=== PATIENT | female | born 1965 | race Caucasian/White ===

== ENCOUNTER 2016-11-21 07:55 | Inpatient (IN) | payer OTHER ==
[~2016-11-21 07:55] MED LIST: cefOXitin SODIUM 1 GM in D5W 50 ML IV ONE
[2016-11-21] MEDS ORDERED: LR 1,000 ML IV ONE (08:46)
[2016-11-21] MEDS ORDERED: LIDOCAINE 1% 5 ML SDV ID PRN (08:46)
[2016-11-21 09:18] LABS: % IMMATURE GRANULYOCYTES 0.4 % (0.0-1.1); ABSOLUTE IMMATURE GRANULOCYTES 0.02 10^3/uL (0.00-0.10); ADD DIFF? NO; ADD MORPH? NO; ADD SCAN? NO; ATYPICAL LYMPHOCYTE FLAG 10 (0-99); FRAGMENT RBC FLAG 0 (0-99); HEMATOCRIT 36.7 % (38.0-47.0); HEMOGLOBIN 12.5 g/dL (12.6-16.3); LEFT SHIFT FLG 0 (0-99); LIPEMIA HEMOLYSIS FLAG 90 (0-99); MEAN CELL HEMOGLOBIN 32.1 pg (27.9-34.1); MEAN CELL HEMOGLOBIN CONCENTR. 34.1 g/dL (32.4-36.7); MEAN CELL VOLUME 94.3 fL (81.5-99.8); MEAN PLATELET VOLUME 11.6 fL (8.7-11.7); PLATELET CLUMPS FLAG 0 (0-99); PLATELET COUNT 273 10^3/uL (150-400); RED BLOOD CELL COUNT 3.89 10^6/uL (4.18-5.33); RED CELL DISTRIBUTION WIDTH 12.5 % (11.5-15.2)
[2016-11-21] MEDS ORDERED: BUPIVACAINE 0.5% 30 ML SDV ONE ×2 (10:03→11:13)
[2016-11-21] MEDS ORDERED: NALOXONE HCL 0.4 MG/ML INJ IVP PRN (10:10)
[2016-11-21] MEDS ORDERED: ONDANSETRON DISINTEGRATING 4 MG TAB PO PRN (10:11)
[2016-11-21] MEDS ORDERED: ONDANSETRON 4 MG/2 ML VIAL IVP PRN (10:11)
[2016-11-21] MEDS ORDERED: ACETAMINOPHEN 325 MG TAB PO PRN (10:11)
[2016-11-21] MEDS ORDERED: diphenhydrAMINE 25 MG CAP PO PRN (10:11)
[2016-11-21] MEDS ORDERED: MIDAZOLAM 2 MG/2 ML VIAL ONE (10:31)
[2016-11-21] MEDS ORDERED: ROCURONIUM 50 MG/5 ML VIAL ONE (10:32)
[2016-11-21] MEDS ORDERED: PROPOFOL 200 MG/20 ML VIAL ONE (10:32)
[2016-11-21] MEDS ORDERED: LIDOCAINE 2% 5 ML SDV ONE (10:32)
[2016-11-21] MEDS ORDERED: fentaNYL 100 MCG/2 ML INJ ONE ×3 (10:32→13:01)
[2016-11-21] MEDS ORDERED: DEXAMETHASONE 4 MG/ML VIAL ONE ×2 (10:42)
[2016-11-21] MEDS ORDERED: ONDANSETRON 4 MG/2 ML VIAL ONE (10:44)
[2016-11-21] MEDS ORDERED: LIDOCAINE 2% JELLY 5 ML TUBE ONE (11:29)
[2016-11-21] MEDS ORDERED: fentaNYL 250 MCG/5 ML INJ ONE (12:01)
[2016-11-21] MEDS ORDERED: SUGAMMADEX SODIUM 200 MG/2 ML VIAL IVP ONE (12:24)
[2016-11-21] MEDS ORDERED: KETOROLAC 30 MG/1 ML SDV ONE (12:24)
--- NOTE | 2016-11-21 12:31 | POSTOPPROG ---
Post Op Note Date of Operation: 11/21/16 Surgeon: Magalys Dey Otr Owner Operator: ricardo Anesthesiologist: sally Anesthesia: GET(General Endotracheal) Pre-op Diagnosis: gist Post-op Diagnosis: gist Indication: 51 yo with gist tumor stomach Procedure: lap resection of gist Findings: tumor Inf/Abcess present in the surg proc area at time of surgery?: No EBL: Minimal Specimen(s): wedge stomach
[2016-11-21] MEDS ORDERED: SKIN ADHESIVE (DERMABOND) 1 EACH TP ONE (12:34)
--- NOTE | 2016-11-21 12:56 | GOP ---
[f rep st] OPERATIVE REPORT DATE OF OPERATION: SURGEON: Magalys Dey MD ASSEMBLER MOLDED FRAMES: Yasmine Mohamud, LORRAINE ANESTHESIA: General. ANESTHESIOLOGIST: Dr. 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 PROCEDURE PERFORMED: Laparoscopic wedge resection of GIST tumor/partial gastrectomy. FINDINGS: Tattooed tumor and tumor palpable. SPECIMENS: Stomach with tumor. ESTIMATED BLOOD LOSS: 25 cc INDICATIONS: The patient is a 51-year-old woman who has had abdominal problems. She then had a scope and was found to have a submucosal mass. Biopsy showed GIST. DESCRIPTION OF PROCEDURE: The patient was brought into the operating room, placed supine on the table and general anesthesia was administered. Her abdomen was prepped and draped in the usual fashion with chlorhexidine. I infiltrated all sites with 0.5% Marcaine prior to making an incision. I made an incision by her umbilicus. I elevated it. I inserted the Veress needle. It passed the hanging drop test. Her abdomen insufflated easily to a pressure of 15 mmHg. Under direct vision I placed a 5 mm subxiphoid trocar and a 5 mm trocar in her right upper quadrant. I examined her stomach. There was tattooing on the anterior aspect of the stomach. As I palpated this, the tumor seemed to be submucosal and a bit posterior. I used the Harmonic to ligate a portion of the short gastric vessels and the omentum. I then was able to grasp the nodule more completely. I used the Endo ROCKY 45 blue load and on the first load this fired very easily. A subsequent fire did not. I ultimately had to switch to an Endo-ROCKY 45 green load to come around the mass completely. In total, I used 4 staple loads. The pylorus was not narrowed. The mass was placed in an EndoCatch bag, retrieved and sent to Pathology. An NG tube was placed, and air insufflated in the stomach. I placed the staple line below irrigation and no bubbles were noted as air insufflation was performed. There were 2 areas of bleeding at the staple line which a clip hat finisher was used to obtain hemostasis. The ports were removed under direct vision and the abdomen allowed to desufflate. The fascia at the 10 mm trocar site was closed with 0 Vicryl. Skin closed with 4-0 Monocryl. Dermabond applied. She was awakened in the operating room, extubated and transferred to PACU in stable condition. /[id number]/MODL MTDD
[2016-11-21] MEDS ORDERED: HYDROmorphONE/DILAUDID 1 MG/ML SYR ONE (13:01)
[2016-11-21] MEDS: morphINE PCA 30 MG/30 ML PCA IV PRN (14:56)
[2016-11-21] MEDS ORDERED: CEPACOL LOZENGE PO PRN (17:32)
[2016-11-21] MEDS ORDERED: BENZOCAINE 57 G CAN HURRICAINE MM PRN (17:38)
[2016-11-21] MEDS ORDERED: BENZOCAINE UNIT DOSE SPRAY HURRICAINE MM PRN (17:39)
[2016-11-21] MEDS: PROPRANOLOL HCL 20 MG TAB PO SCH (20:00)
[2016-11-21] MEDS ORDERED: PROPRANOLOL HCL 60 MG PO SCH (21:00)
[2016-11-22] MEDS: morphINE PCA 30 MG/30 ML PCA IV PRN (03:50)
[2016-11-22] MEDS: NS 1,000 ML IV SCH ×2 (03:50→16:01)
[2016-11-22 05:50] LABS: % IMMATURE GRANULYOCYTES 0.5 % (0.0-1.1); ABSOLUTE IMMATURE GRANULOCYTES 0.06 10^3/uL (0.00-0.10); ADD DIFF? NO; ADD MORPH? NO; ADD SCAN? NO; ATYPICAL LYMPHOCYTE FLAG 0 (0-99); FRAGMENT RBC FLAG 0 (0-99); HEMATOCRIT 35.1 % (38.0-47.0); HEMOGLOBIN 11.7 g/dL (12.6-16.3); LEFT SHIFT FLG 0 (0-99); LIPEMIA HEMOLYSIS FLAG 80 (0-99); MEAN CELL HEMOGLOBIN 32.4 pg (27.9-34.1); MEAN CELL HEMOGLOBIN CONCENTR. 33.3 g/dL (32.4-36.7); MEAN CELL VOLUME 97.2 fL (81.5-99.8); PLATELET CLUMPS FLAG 0 (0-99); PLATELET COUNT 269 10^3/uL (150-400); RED BLOOD CELL COUNT 3.61 10^6/uL (4.18-5.33); RED CELL DISTRIBUTION WIDTH 12.6 % (11.5-15.2)
[2016-11-22 06:15] LABS: ANION GAP 10 mEq/L (8-16); CALCIUM 8.8 mg/dL (8.5-10.4); CARBON DIOXIDE 23 mEq/l (22-31); CHLORIDE 109 mEq/L (97-110); CREATININE 0.7 mg/dL (0.6-1.0); GLOMERULAR FILTRATION RATE > 60; GLUCOSE 77 mg/dL (70-100); POTASSIUM 4.5 mEq/L (3.5-5.2); SODIUM 142 mEq/L (134-144)
[2016-11-22] MEDS ORDERED: HYDROCORTISONE 10 MG TAB PO SCH (09:00)
[2016-11-22] MEDS: PANTOPRAZOLE SODIUM 40 MG in NS 100 ML IV SCH (09:20)
[2016-11-22] MEDS: ENOXAPARIN 40 MG/0.4 ML SYR SC SCH (09:20)
[2016-11-22] MEDS: PROPRANOLOL HCL 20 MG TAB PO SCH ×3 (12:26→20:43)
[2016-11-22] MEDS: HYDROCORTISONE 10 MG TAB PO SCH (12:26)
[2016-11-22] MEDS: [UNRECOGNIZED DRUG - OTHER] PO SCH ×2 (12:27→13:21)
--- NOTE | 2016-11-22 23:53 | SOAPPROG ---
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 Still with high NG output. Will reassess tomorrow - No boucher Heme/ID - No active issues Proph - Lovenox Dispo - continue hospital management S: Pain controlled. NG irritating. Difficult to swallow propranolol O: Sitting in bed. Dark fluid in NG CTAB decreased at bases Regular rate BS present. Soft. Appropriately tender. Incisions cdi Plan: 11/22/16 23:51 Objective: Vital Signs Temp Pulse Resp BP Pulse Ox 37.4 C 65 16 102/52 L 95 11/22/16 22:00 11/22/16 22:00 11/22/16 22:00 11/22/16 22:00 11/22/16 22:00 Laboratory Results 11/22/16 05:20 11/22/16 05:20 11/21/16 11/22/16 11/23/16 05:59 05:59 05:59 Intake Total 2900 480 Output Total 430 2500 Balance 2469 ICD10 Worksheet Patient Problems: Problems Problem Status Onset Gastrointestinal stromal tumor (GIST) Acute - ICD10 Problem Qualifiers (1) Gastrointestinal stromal tumor (GIST)
[2016-11-23] MEDS: morphINE PCA 30 MG/30 ML PCA IV PRN ×2 (02:28→16:07)
[2016-11-23] MEDS: NS 1,000 ML IV SCH ×2 (04:38→17:36)
[2016-11-23] MEDS ORDERED: LORazepam 2 MG/ML INJ IVP ONE (09:30)
[2016-11-23] MEDS: HYDROCORTISONE 10 MG TAB PO SCH (10:03)
[2016-11-23] MEDS: [UNRECOGNIZED DRUG - OTHER] PO SCH (10:04)
[2016-11-23] MEDS ORDERED: LORazepam 2 MG/ML INJ IVP PRN (10:19)
--- NOTE | 2016-11-23 10:34 | SOAPPROG ---
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 Back pain/spasm started Ativan Resp - IS Cards - Monitor for hemodynamic instability. Propranol hold if SBP <110 or Pulse <50 GI - Passing flatus. Clamped NG. X ray at 2 pm. If stomach not distended, will remove NG - No boucher Heme/ID - No active issues. Will recheck CBC Proph - Lovenox Dispo - continue hospital management S:Back pain. Sleepy after ativan O: lying in bed. thin yellow fluid in NG CTAB decreased at bases Regular rate BS present. Soft. Appropriately tender. Incisions cdi Plan: 11/22/16 23:51 11/23/16 10:33 Objective: Vital Signs Temp Pulse Resp BP Pulse Ox 37.6 C 78 16 102/54 L 94 11/23/16 08:00 11/23/16 10:00 11/23/16 10:00 11/23/16 08:00 11/23/16 10:00 Laboratory Results 11/22/16 05:20 11/22/16 05:20 11/22/16 11/23/16 11/24/16 05:59 05:59 05:59 Intake Total 2900 480 711 Output Total 430 3200 Balance 2470 -6550 711 ICD10 Worksheet Patient Problems: Problems Problem Status Onset Gastrointestinal stromal tumor (GIST) Acute - ICD10 Problem Qualifiers (1) Gastrointestinal stromal tumor (GIST)
[2016-11-23 10:38] LABS: % IMMATURE GRANULYOCYTES 0.4 % (0.0-1.1); ABSOLUTE IMMATURE GRANULOCYTES 0.05 10^3/uL (0.00-0.10); ADD DIFF? NO; ADD MORPH? NO; ADD SCAN? NO; ATYPICAL LYMPHOCYTE FLAG 0 (0-99); FRAGMENT RBC FLAG 0 (0-99); HEMATOCRIT 34.7 % (38.0-47.0); HEMOGLOBIN 11.6 g/dL (12.6-16.3); LEFT SHIFT FLG 0 (0-99); LIPEMIA HEMOLYSIS FLAG 80 (0-99); MEAN CELL HEMOGLOBIN 32.7 pg (27.9-34.1); MEAN CELL HEMOGLOBIN CONCENTR. 33.4 g/dL (32.4-36.7); MEAN CELL VOLUME 97.7 fL (81.5-99.8); MEAN PLATELET VOLUME 11.6 fL (8.7-11.7); PLATELET CLUMPS FLAG 0 (0-99); PLATELET COUNT 245 10^3/uL (150-400); RED BLOOD CELL COUNT 3.55 10^6/uL (4.18-5.33); RED CELL DISTRIBUTION WIDTH 12.3 % (11.5-15.2)
[2016-11-23] MEDS: ENOXAPARIN 40 MG/0.4 ML SYR SC SCH (10:47)
[2016-11-23] MEDS: PANTOPRAZOLE SODIUM 40 MG in NS 100 ML IV SCH (10:48)
[2016-11-23] MEDS: PROPRANOLOL HCL 20 MG TAB PO SCH ×2 (10:52→20:42)
[2016-11-23] MEDS: KETOROLAC 15 MG/1 ML SDV IVP PRN (17:37)
[2016-11-24] MEDS: KETOROLAC 15 MG/1 ML SDV IVP PRN ×2 (00:29→09:35)
[2016-11-24 05:18] LABS: % IMMATURE GRANULYOCYTES 0.4 % (0.0-1.1); ABSOLUTE IMMATURE GRANULOCYTES 0.03 10^3/uL (0.00-0.10); ADD DIFF? NO; ADD MORPH? NO; ADD SCAN? NO; ATYPICAL LYMPHOCYTE FLAG 0 (0-99); FRAGMENT RBC FLAG 0 (0-99); HEMATOCRIT 33.7 % (38.0-47.0); HEMOGLOBIN 11.5 g/dL (12.6-16.3); LEFT SHIFT FLG 0 (0-99); LIPEMIA HEMOLYSIS FLAG 90 (0-99); MEAN CELL HEMOGLOBIN 32.2 pg (27.9-34.1); MEAN CELL HEMOGLOBIN CONCENTR. 34.1 g/dL (32.4-36.7); MEAN CELL VOLUME 94.4 fL (81.5-99.8); MEAN PLATELET VOLUME 11.3 fL (8.7-11.7); PLATELET CLUMPS FLAG 0 (0-99); PLATELET COUNT 219 10^3/uL (150-400); RED BLOOD CELL COUNT 3.57 10^6/uL (4.18-5.33)
[2016-11-24 05:42] LABS: ANION GAP 12 mEq/L (8-16); CALCIUM 8.6 mg/dL (8.5-10.4); CARBON DIOXIDE 18 mEq/l (22-31); CHLORIDE 108 mEq/L (97-110); CREATININE 0.6 mg/dL (0.6-1.0); GLOMERULAR FILTRATION RATE > 60; GLUCOSE 59 mg/dL (70-100); POTASSIUM 4.1 mEq/L (3.5-5.2); SODIUM 138 mEq/L (134-144)
[2016-11-24] MEDS ORDERED: D5W 1/2 NS W/ 20 KCl/L 1,000 ML IV SCH (06:30)
[2016-11-24] MEDS ORDERED: [UNRECOGNIZED DRUG - OTHER] PO SCH ×2 (09:00→10:00)
[2016-11-24] MEDS: ENOXAPARIN 40 MG/0.4 ML SYR SC SCH (09:13)
[2016-11-24] MEDS: HYDROCORTISONE 10 MG TAB PO SCH (09:16)
[2016-11-24] MEDS: PANTOPRAZOLE SODIUM 40 MG in NS 100 ML IV SCH (09:35)
[2016-11-24] MEDS: [UNRECOGNIZED DRUG - OTHER] PO SCH ×2 (10:01→15:44)
[2016-11-24] MEDS ORDERED: CYCLOBENZAPRINE 10 MG TAB PO ONE (10:32)
[2016-11-24] MEDS ORDERED: BISACODYL 10 MG SUPP PR PRN (10:39)
[2016-11-24] MEDS ORDERED: POLYETHYLENE GLYCOL 3350 17 GM PKT PO PRN (10:39)
[2016-11-24] MEDS ORDERED: LACTULOSE 20 GM/30 ML UDCUP PO PRN (10:39)
[2016-11-24] MEDS ORDERED: MAGNESIUM HYDROXIDE 30 ML UDCUP PO PRN (10:39)
--- NOTE | 2016-11-24 11:01 | SOAPPROG ---
SOAP Progress Note Assessment/Plan: Assessment: 51yo F who is POD #3 s/p wedge resection of GIST. Final path pending Neuro - morphine BUSGIRL, transition to PO. Back pain/spasm, sensitive to ativan. Try Flexeril Resp - IS Cards - Monitor for hemodynamic instability. Propranol hold if SBP <110 or Pulse <50 GI - Passing flatus. No nausea since NG removed overnight. start bowel protocol FEN - advance to clear liquid diet - No boucher Heme/ID - No active issues. CBC stable Proph - Lovenox Dispo - continue hospital management. Seen with Dr. Dey S: back spasms persistent, passed out after ativan. no abdominal pain. passing flatus. no BM O: lying in bed, uncomfortable, at bedside CTAB decreased at bases Regular rate BS present. Soft. Minimally tender. Incisions cdi 11/24/16 13:40 Objective: Vital Signs Temp Pulse Resp BP Pulse Ox 37.1 C 80 12 124/70 H 93 11/24/16 09:55 11/24/16 09:55 11/24/16 09:55 11/24/16 09:55 11/24/16 09:55 Laboratory Results 11/24/16 04:54 11/24/16 04:54 11/23/16 11/24/16 11/25/16 05:59 05:59 05:59 Intake Total 480 1611 Output Total 9510 1700 Balance -2720 -89 ICD10 Worksheet Patient Problems: Problems Problem Status Onset Gastrointestinal stromal tumor (GIST) Acute
[2016-11-24] MEDS: HYDROCODONE/APAP 5/325 TAB PO PRN ×2 (13:08→18:21)
[2016-11-24] MEDS: PROPRANOLOL HCL 20 MG TAB PO SCH ×2 (15:43)
[2016-11-24] MEDS: SENNOSIDES/DOCUSATE SODIUM TAB PO SCH (20:06)
[2016-11-24] MEDS: CYCLOBENZAPRINE 10 MG TAB PO PRN (20:07)
[2016-11-25] MEDS: HYDROCODONE/APAP 5/325 TAB PO PRN ×3 (00:36→21:32)
[2016-11-25] MEDS: CYCLOBENZAPRINE 10 MG TAB PO PRN (06:30)
[2016-11-25] MEDS: [UNRECOGNIZED DRUG - OTHER] PO SCH ×2 (09:07→15:50)
[2016-11-25] MEDS: PROPRANOLOL HCL 20 MG TAB PO SCH ×2 (09:08→21:31)
[2016-11-25] MEDS: ENOXAPARIN 40 MG/0.4 ML SYR SC SCH (09:08)
[2016-11-25] MEDS: SENNOSIDES/DOCUSATE SODIUM TAB PO SCH ×2 (09:09→21:31)
[2016-11-25] MEDS: PANTOPRAZOLE SODIUM 40 MG TAB PO SCH (09:10)
[2016-11-25] MEDS: HYDROCORTISONE 10 MG TAB PO SCH (09:11)
--- NOTE | 2016-11-25 09:32 | SOAPPROG ---
SOAP Progress Note Assessment/Plan: Assessment: 51yo F who is POD #4 s/p wedge resection of GIST. Final path pending Neuro - PO norco and Flexeril Resp - IS Cards - Monitor for hemodynamic instability. Propranol hold if SBP <110 or Pulse <50 GI - Passing flatus. bowel protocol. FEN - tolerating clears, advance to regular - voiding spontaneously Heme/ID - No active issues Proph - Lovenox Dispo - home tomorrow am. Seen with Dr. Tiburcio Moore - new rash R inner arm, not itchy - try topical hydrocortisone S: back spasms persistent, slept better on pull-out couch. no pain when sitting upright. abdominal pain with certain movements O: sitting upright eating breakfast, NAD CTAB decreased at bases Regular rate BS present. Soft. Nontender. Incisions cdi Objective: Vital Signs Temp Pulse Resp BP Pulse Ox 37.4 C 72 14 116/72 95 11/25/16 07:49 11/25/16 09:08 11/25/16 07:49 11/25/16 09:08 11/25/16 07:49 Laboratory Results 11/24/16 04:54 11/24/16 04:54 11/24/16 11/25/16 11/26/16 05:59 05:59 05:59 Intake Total 1611 850 Output Total 1700 400 Balance -89 450 ICD10 Worksheet Patient Problems: Problems Problem Status Onset Gastrointestinal stromal tumor (GIST) Acute
[2016-11-25] MEDS: HYDROCORTISONE 1% CREAM TP SCH ×2 (11:07→21:32)
[2016-11-25] MEDS ORDERED: RIZATRIPTAN BENZOATE 10 MG PO PRN (11:26)
[2016-11-25] MEDS ORDERED: Rizatriptan Benzoate [Rizatriptan] 10 MG PO PRN (11:27)
[2016-11-26 08:19] VITALS: BP 91/66; PULSE 79; RESP 14; TEMP 98.8; O2SAT 96
[2016-11-26] MEDS: SENNOSIDES/DOCUSATE SODIUM TAB PO SCH (08:32)
[2016-11-26] MEDS: ENOXAPARIN 40 MG/0.4 ML SYR SC SCH (08:33)
[2016-11-26] MEDS: HYDROCORTISONE 10 MG TAB PO SCH (08:33)
[2016-11-26] MEDS: PANTOPRAZOLE SODIUM 40 MG TAB PO SCH (08:33)
[2016-11-26] MEDS: PROPRANOLOL HCL 20 MG TAB PO SCH (08:33)
[2016-11-26] MEDS: HYDROCORTISONE 1% CREAM TP SCH (08:34)
[2016-11-26] MEDS: [UNRECOGNIZED DRUG - OTHER] PO SCH (08:37)
--- NOTE | 2016-11-26 10:44 | SOAPPROG ---
SOAP Progress Note Assessment/Plan: Assessment: 51yo F who is POD #5 s/p wedge resection of gastric tumor. Final path pending, prelim neuroendocrine Neuro - PO norco and Flexeril Resp - IS Cards - Monitor for hemodynamic instability. Propranol hold if SBP <110 or Pulse <50 GI - Passing flatus. bowel protocol. FEN - tolerating regular diet - voiding spontaneously Heme/ID - No active issues Proph - Lovenox Dispo - home today. f/u Dr. castro. F/u Dr. Dey 2 weeks S: had a bowel movement this morning. back spasms persistent. eating well, no new issues O: sitting upright in chair, NAD CTAB decreased at bases Regular rate BS present. Soft. Nontender. Incisions cdi maculopapular rash right inner bicep and inframammary Objective: Vital Signs Temp Pulse Resp BP Pulse Ox 37.1 C 79 14 91/66 L 96 11/26/16 08:00 11/26/16 08:00 11/26/16 08:00 11/26/16 08:00 11/26/16 08:00 Laboratory Results 11/24/16 04:54 11/24/16 04:54 11/25/16 11/26/16 11/27/16 05:59 05:59 05:59 Intake Total 850 1000 Output Total 400 Balance 450 1000 ICD10 Worksheet Patient Problems: Problems Problem Status Onset Gastrointestinal stromal tumor (GIST) Acute
--- NOTE | 2016-11-27 20:21 | GDS ---
[f rep st] DISCHARGE SUMMARY ADMITTING DIAGNOSIS: Submucosal gastric mass. SECONDARY DIAGNOSES: 1. Anxiety. 2. Migraine headache. 3. Mitral valve prolapse. 4. Neck pain. 5. Alopecia. 6. Transient ischemic attack. REASON FOR ADMISSION: The patient is a 51-year-old woman who was recently found to have a submucosa l mass in the gastric antrum. Preop workup showed the mass suspected gist tumor. She presents this time for surgical resection, pain control, observation. HOSPITAL COURSE: She was taken to the operating room on 11/21/[address] Magalys Dey for a laparos copic resection of gastric mass. Her NG tube was removed on postoperative day #2, and her diet was advanced to regular by postoperative day 4. On postoperative day 5, her pain was controlled with or al pain medications. She was tolerating a regular diet, ambulating independently. Through her hosp ital stay she has suffered from low back pain, which was improved by sleeping and sitting upright. She was stable for discharge on postop day #5. CONDITION: She is being discharged home in stable condition. Pain controlled with oral pain medica tion, tolerating regular diet and ambulating independently. DISCHARGE MEDICATIONS: She was prescribed [place] and Flexeril. She was instructed to resume home me dications. Please see EMR for further detail. DISCHARGE INSTRUCTIONS AND FOLLOWUP: She will follow up with LORRAINE Estrella in 2 weeks. She ma y shower. She may follow a regular diet. She will avoid heavy lifting, pushing, or pulling x2 week s. She understands to call our office with any worsening symptoms questions or concerns. /[id number]/MODL
== END 2016-11-26 11:22 | disposition home or self-care (01) | DRG 544 ==
LOC: F3E 07:55
PROVIDERS: ADMIT Surgery; ATTEND Surgery
PROC: 0DB64ZZ Excision of Stomach, Percutaneous Endoscopic Approach (ICD-10-PCS; principal; 2016-11-21 09:45)
DX: C49.A2 Gastrointestinal stromal tumor of stomach (principal); F41.9 Anxiety disorder, unspecified; G43.909 Migraine, unspecified, not intractable, without status migrainosus; I34.1 Nonrheumatic mitral (valve) prolapse; M54.2 Cervicalgia; L65.9 Nonscarring hair loss, unspecified; Z80.9 Family history of malignant neoplasm, unspecified; Z83.3 Family history of diabetes mellitus; Z82.49 Family history of ischemic heart disease and other diseases of the circulatory system
CPT/HCPCS: J0697; J1100; J1170; J1650; J1885; J2060; J2250; J2270; J2405; J2704; J3010

== ENCOUNTER → 2017-07-22 | Outpatient (CLI) | payer OTHER | LOC: FIMAGING 07:32 | PROVIDERS: ATTEND Family Medicine | DX: E04.2 Nontoxic multinodular goiter (principal); E06.3 Autoimmune thyroiditis ==

== ENCOUNTER → 2017-07-24 | Outpatient (CLI) | payer OTHER | LOC: FIMAGING 15:27 | PROVIDERS: ATTEND Family Medicine | DX: Z12.31 Encounter for screening mammogram for malignant neoplasm of breast (principal) | CPT/HCPCS: G0202 ==

== ENCOUNTER → 2017-08-18 | Outpatient (CLI) | payer OTHER | LOC: FIMAGING 09:05 | PROVIDERS: ATTEND Family Medicine | DX: R92.8 Other abnormal and inconclusive findings on diagnostic imaging of breast (principal) | CPT/HCPCS: G0206 ==

== ENCOUNTER 2017-10-02 19:48 | Emergency (ER) | payer OTHER ==
--- NOTE | 2017-10-02 21:14 | EDPHY ---
H & P Time Seen by Provider: 10/02/17 20:56 HPI/ROS: CHIEF COMPLAINT: Cough HISTORY OF PRESENT ILLNESS: 52-year-old female presents to the emergency department by private vehicle complaining of worsening cough. The patient states that she was recently on a cruise ship and return today. Over last 5 days she has had the nonproductive cough. She states that this has kept her up for several nights. She is concerned because years ago she had a bad "lung infection "and was hospitalized for 11 days. She had pneumonia in the past as well. She is very prone to bronchitis. No history of asthma. She has had subjective fevers and chills. She has diffuse myalgias. Does not receive flu shots because of allergies to eggs. She states that her sides are hurting from coughing. Denies any other abdominal pain. No vomiting. No post tussive vomiting. REVIEW OF SYSTEMS: Constitutional: Subjective fevers, chills Eyes: No double or blurry vision. ENT: No sore throat. Respiratory: Cough as above. no shortness of breath. Cardiac: No chest pain. Gastrointestinal: No abdominal pain, vomiting or diarrhea. Genitourinary: No dysuria. Musculoskeletal: Neck and back pain Skin: No rashes. Neurological: No headache. Past Medical/Surgical History: Migraine headaches, mitral valve prolapse, hysterectomy Social History: and lives in [place] Smoking Status: Never smoked Physical Exam: General Appearance: Alert, no distress.37.3, 96% on room air Eyes: Pupils equal and round. Extraocular motions are all intact. ENT: Mouth: Mucous membranes moist. Respiratory: No wheezing, rhonchi, or rales, lungs are clear to auscultation. Actively try coughing. Cardiovascular: Regular rate and rhythm. Gastrointestinal: Abdomen is soft and nontender, no masses, no rebound or guarding, bowel sounds normal. Neurological: Alert and oriented x 3, cranial nerves II through XII grossly intact Skin: Warm and dry, no rashes. Musculoskeletal: Nontender to palpate along the cervical, thoracic or lumbar spine. Neck is supple. Extremities: Full range of motion and no peripheral edema. Psychiatric: Patient is oriented X 3, there is no agitation. Constitutional: Initial Vital Signs Temperature (C) 37.3 C 10/02/17 19:51 Heart Rate 84 10/02/17 19:51 Respiratory Rate 18 01/26/18 19:51 Blood Pressure 147/78 H 10/02/17 19:51 O2 Sat (%) 96 10/02/17 19:51 O2 Delivery Mode Room Air Allergies/Adverse Reactions: iodine Allergy (Verified 10/02/17 19:53) Iodine and Iodide Containing Produc Allergy (Verified 10/02/17 19:53) Loss of consciousness EGGS Allergy (Uncoded 10/02/17 19:53) Home Medications: Medication Instructions Recorded Propranolol HCl 60 mg PO BID 09/30/14 Esomeprazole Mag Trihydrate 40 mg PO DAILY 10/01/14 [Nexium] Herbals/Supplements -Info Only 1 ea PO DAILY 10/01/14 C/E/Zn/Cu/OM3/DHA/EPA/LUT/ZEAX 1 each PO DAILY 11/18/16 [Preservision Areds 2 Softgel] Hydrocortisone [Cortef 10 mg (*)] 10 mg PO DAILY 11/18/16 T-3 45mcg 22.5 mcg PO DAILY 11/18/16 Rizatriptan Benzoate [Rizatriptan] 10 mg PO Q2 PRN MDD 30MG 11/25/16 Albuterol [Proventil Inhaler HFA 1 - 2 puffs IH Q4PRN PRN #1 mdi 10/02/17 (*)] Azithromycin [Zithromax tab 250 mg] 250 mg PO DAILY #4 tab 10/02/17 Medical Decision Making - Diagnostics Imaging Results: Imaging Impressions Chest X-Ray 10/02/17 21:10 Impression: Minimal airways disease. No pneumonia or effusion. ED Course/Re-evaluation: 52-year-old female presents to the emergency department with ongoing dry cough. Patient has a history of frequent bronchitis and was concerned about possible pneumonia. She requested chest x-ray. Chest x-ray reveals no obvious infiltrate or consolidation. I did to the patient that clinically she likely has influenza. The patient however is outside of the window of testing or treatment. Patient does not have a history of asthma. Patient will be treated with Zithromax, albuterol inhaler for possible bronchitis. She was also encouraged to have close follow-up with primary care provider. Differential Diagnosis: Including but not limited to bronchitis, pneumonia, influenza, viral upper respiratory infection Departure - Departure Disposition: Home, Routine, Self-Care Clinical Impression: Acute bronchitis Qualifiers: Bronchitis organism: unspecified organism Qualified Code(s): J20.9 - Acute bronchitis, unspecified Condition: Good Instructions: Acute Bronchitis (ED) Additional Instructions: Albuterol inhaler 2 puffs every 4 hours for one week and then as needed. Zithromax as directed for 5 days. Ialh-otv-htcvkow Delsym, dextromethorphan, to help suppress your cough at night. Referrals: Zakiya Canales MD [Primary Care Provider] - As per Instructions Prescriptions: Albuterol [Proventil Inhaler HFA (*)] 1 - 2 puffs IH Q4PRN PRN #1 mdi PRN Reason: p.r.n. dyspnea Azithromycin [Zithromax tab 250 mg] 250 mg PO DAILY #4 tab
[2017-10-02] MEDS ORDERED: AZITHROMYCIN 250 MG TAB PO ONE (21:36)
[2017-10-02 22:12] VITALS: BP 91/58; PULSE 78; RESP 22; TEMP 98.8; O2SAT 93
== END 2017-10-02 22:11 | disposition home or self-care (01) ==
DX: J20.9 Acute bronchitis, unspecified (principal)

== ENCOUNTER → 2017-11-06 | Outpatient (CLI) | payer OTHER | LOC: FIMAGING 11:26 | PROVIDERS: ATTEND Family Medicine | DX: M50.322 Other cervical disc degeneration at C5-C6 level (principal); M99.71 Connective tissue and disc stenosis of intervertebral foramina of cervical region ==

== ENCOUNTER 2017-11-09 15:04 | Emergency (ER) | payer OTHER ==
[2017-11-09 15:10] VITALS: O2SAT 98
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
[2017-11-09] MEDS ORDERED: oxyCODONE IR 5 MG TAB PO ONE (16:20)
[2017-11-09 17:51] VITALS: BP 135/76; PULSE 81; RESP 18; TEMP 98.6
== END 2017-11-09 18:23 | disposition home or self-care (01) ==
DX: S16.1XXA Strain of muscle, fascia and tendon at neck level, initial encounter (principal); S00.83XA Contusion of other part of head, initial encounter; Z79.82 Long term (current) use of aspirin; V00.328A Other snow-ski accident, initial encounter; Y99.8 Other external cause status; Y93.23 Activity, snow (alpine) (downhill) skiing, snowboarding, sledding, tobogganing and snow tubing

== ENCOUNTER → 2018-08-11 | Outpatient (CLI) | payer OTHER | LOC: FIMAGING 15:43 | PROVIDERS: ATTEND Family Medicine | DX: Z12.31 Encounter for screening mammogram for malignant neoplasm of breast (principal) ==

== ENCOUNTER 2018-12-14 08:37 | Emergency (ER) | payer OTHER ==
--- NOTE | 2018-12-14 09:11 | EDPHY ---
General Time Seen by Provider: 12/14/18 08:59 Narrative: CLINICAL IMPRESSION: Bronchitis, possible early aspiration pneumonia versus pneumonitis ASSESSMENT/PLAN: 53-year-old female presents to the emergency department with complaints of cough and very mild hemoptysis in the setting aspirating stomach contents related to GERD in the middle the night. Patient reports she "over 8" and dinner, complained of acid reflux all night, and at 1 point aspirated a "mouthful" of stomach contents. Patient reported coughing all night and noting red streaks in her mucus. No reported fever, chills, nausea vomiting. She has no chest pain or shortness of breath. She does have an underlying history of asthma, controlled with once daily Advair. On arrival, patient was noted to be coughing but not hypoxic, tachycardic, tachypneic, or in respiratory distress. Lungs are clear. She does have a leukocytosis of 15 and chest x-ray with possible early right middle lobe infiltrate. This was reviewed with Dr. Oliveira. Final radiology read pending at this time. Given patient's reported history, she will be treated with antibiotics, Augmentin initiated in the ED, prescription given.. She has a severe iodine allergy and is refusing any CT scan containing iodine. She has no pleuritic discomfort, asymmetric leg swelling or history of PE. Encouraged primary care follow-up in 24-48 hours. Warning signs return to ED sooner outlined and discharge and person. DIFFERENTIAL DX: Differential includes but not limited to aspiration pneumonia, bronchitis, laryngitis, LPR, GERD, pleural effusion ED PROCEDURES: See lab and/or imaging results below ED COURSE: 9:00 a.m.: Patient seen and assessed by myself. Vital signs stable, no hypoxia or respiratory distress. Dry cough noted. Plan for labs and chest x- ray. Patient denying GERD symptoms at this time. 10:00 a.m.: Preliminary view of chest x-ray concerning for possible right middle lobe pneumonia. Reviewed with Dr. Oliveira. Final radiology read pending. Patient does have a white count of 15. Given this and persistent cough with reported aspiration will plan to treat with antibiotics. Patient refusing iodine and CT scan due to significant allergy causing her to "stopped breathing". Chest x-ray reviewed with the patient. She is in agreement to taking antibiotics. Vitals remained stable, no hypoxia or tachycardia. CHIEF COMPLAINT: Cough with blood streaks HPI: Very pleasant 53-year-old female presents to the emergency department stating she had bad acid reflux in the middle the night, noted stomach contents refluxing into the mouth and 1 point accidentally aspirated some of this into her lungs. She notes that she has been coughing most of the night in effort to clear her lungs. She has noticed some light blood streaks in her mucus. No significant amount of blood. No vomiting. No abdominal pain, chest pain or shortness of breath. She has a history of asthma treated with Advair. She does not take albuterol as needed. No reported fever or chills. She does report a significant history of a large pleural effusion following surgery 6 years ago requiring thoracotomy on the right lung. She has not had problems since that time. PAST MEDICAL HISTORY: Hypothyroidism, mitral valve prolapse, TIA, migraines See nurse/triage notes for additional history if applicable Pertinent Past Surgical History: Hysterectomy Family History: None reported Social History: , otherwise healthy, severe allergy to iodine REVIEW OF SYSTEMS: All other systems negative Constitutional: No fever, no chills, appetite change. Eyes: No discharge, vision change ENT: Positive for sore throat, congestion, ear pain. Cardiovascular: No chest pain, no palpitations. Respiratory: Positive for cough, no shortness of breath. Gastrointestinal: No abdominal pain, no vomiting, diarrhea. PHYSICAL EXAM: General Appearance: Alert, oriented, appropriate, cooperative, dry cough, NAD, well hydrated, non-toxic appearing, VSS, no hypoxia. HEENT: TMs are clear bilaterally no perforation or FB, no injection, no evidence of serous or mucopurulent otitis. Oropharynx clear is no erythema or exudates, no tonsillar hypertrophy or asymmetry. Dentition without abnormality. Respiratory: There are no retractions, lungs are clear to auscultation. Cardiac: Regular rate and rhythm, no murmurs or gallops. Gastrointestinal: Abdomen is soft, nontender, bowel sounds normal, no masses/ hernia, no rigidity, guarding or focal peritoneal findings. Neurological: [ Alert and oriented x 3, CN 2-12 grossly intact Skin: Warm, dry, no rashes, no nodules on palpation. MEDICAL DECISION MAKING: Patient was seen independently. Secondary supervising physician at time of evaluation was Dr. Oliveira . Diagnosis: Bronchitis with possible early aspiration pneumonia versus pneumonitis . New, requires workup Summary: See Assessment and Plan for summary of ED visit Clinical lab tests: ordered / reviewed. Independent visualization of images, tracing, or specimens: Yes. Decision to obtain medical records or history from someone other than the patient: No Review / Summarize previous medical records: Reviewed past chest x-rays Discussed patient with another provider: Dr. Oliveira Patient Progress: Stable for discharge. - History Smoking Status: Never smoked - Objective Vital Signs: Initial Vital Signs Temperature (C) 37.6 C 12/14/18 08:42 Heart Rate 79 12/14/18 08:42 Respiratory Rate 16 12/14/18 08:42 Blood Pressure 104/85 H 12/14/18 08:42 O2 Sat (%) 98 12/14/18 08:42 O2 Delivery Mode Room Air Allergies/Adverse Reactions: iodine Allergy (Verified 12/14/18 08:40) Iodine and Iodide Containing Produc Allergy (Verified 12/14/18 08:40) Loss of consciousness EGGS Allergy (Uncoded 12/14/18 08:40) Home Medications: Medication Instructions Recorded Propranolol HCl 60 mg PO BID 09/30/14 Advair 100/50 (*) 12/14/18 Amoxicillin/Clavulanate Pot 875 mg PO BID #20 tab 12/14/18 [Augmentin 875 mg tab] Levothyroxine 12/14/18 Laboratory Results: Laboratory Results 12/14/18 09:19 12/14/18 09:19 12/14/18 12/14/18 09:19 09:19 WBC 15.11 10^3/uL H 10^3/uL (3.80-9.50) RBC 4.26 10^6/uL 10^6/uL (4.18-5.33) Hgb 13.6 g/dL g/dL (12.6-16.3) Hct 40.1 % % (38.0-47.0) MCV 94.1 fL fL (81.5-99.8) MCH 31.9 pg pg (27.9-34.1) MCHC 33.9 g/dL g/dL (32.4-36.7) RDW 12.7 % % (11.5-15.2) Plt Count 299 10^3/uL 10^3/uL (150-400) MPV 11.2 fL fL (8.7-11.7) Neut % (Auto) 78.2 % H % (39.3-74.2) Lymph % (Auto) 13.0 % L % (15.0-45.0) [place] % (Auto) 7.3 % % (4.5-13.0) Eos % (Auto) 0.7 % % (0.6-7.6) Baso % (Auto) 0.4 % % (0.3-1.7) Nucleat RBC Rel Count 0.0 % % (0.0-0.2) Absolute Neuts (auto) 11.81 10^3/uL H 10^3/uL (1.70-6.50) Absolute Lymphs (auto) 1.97 10^3/uL 10^3/uL (1.00-3.00) Absolute Monos (auto) 1.10 10^3/uL H 10^3/uL (0.30-0.80) Absolute Eos (auto) 0.11 10^3/uL 10^3/uL (0.03-0.40) Absolute Basos (auto) 0.06 10^3/uL 10^3/uL (0.02-0.10) Absolute Nucleated RBC 0.00 10^3/uL 10^3/uL (0-0.01) Immature Gran % 0.4 % % (0.0-1.1) Immature Gran # 0.06 10^3/uL 10^3/uL (0.00-0.10) Sodium 138 mEq/L mEq/L (135-145) Potassium 4.6 mEq/L mEq/L (3.5-5.2) Chloride 106 mEq/L mEq/L (97-110) Carbon Dioxide 21 mEq/l L mEq/l (22-31) Anion Gap 11 mEq/L mEq/L (6-14) BUN 16 mg/dL mg/dL (7-23) Creatinine 0.6 mg/dL mg/dL (0.6-1.0) Estimated GFR > 60 Glucose 92 mg/dL mg/dL (70-100) Calcium 9.8 mg/dL mg/dL (8.5-10.4) Departure - Departure Disposition: Home, Routine, Self-Care Clinical Impression: Cough Condition: Good Instructions: Acute Bronchitis (ED), Hemoptysis (ED) Additional Instructions: DISCHARGE INSTRUCTIONS FROM YOUR DOCTOR Thank you for visiting our emergency department today. You were treated by a physician senior sales assistant today and your case was reviewed with our ED Attending physician. Please keep in mind that discharge from the emergency department does not mean that there is nothing wrong - it simply means that we have not identified an emergency condition that requires further evaluation or treatment in the hospital. You should always plan to follow up with primary care for re- evaluation of your condition in the next 2-3 days. If you have been referred to a specialist, please call as soon as possible (today or tomorrow) to schedule your follow up appointment at the appropriate time. PRELIMINARY REVIEW OF YOUR CHEST X-RAY IS CONCERNING FOR POSSIBLE EARLY ASPIRATION PNEUMONIA. YOU ALSO HAVE AN ELEVATION IN YOUR INFECTION FIGHTING COUNT TO 15. GIVEN THESE FINDINGS, WE ARE TREATING YOU WITH AN ANTIBIOTIC. WE STRONGLY RECOMMEND FOLLOW-UP WITH A PRIMARY CARE DOCTOR IN 24-48 HOURS. PLEASE CONTINUE TAKING ADVAIR AND USE YOUR ALBUTEROL INHALER EVERY 4 HR NEEDED. PLEASE RETURN TO THE EMERGENCY DEPARTMENT IMMEDIATELY FOR WORSENING OR SEVERE COUGH, SHORTNESS OF BREATH, CHEST PAIN, DEVELOPMENT OF FEVERS GREATER THAN 100.4 , NAUSEA OR VOMITING, OR ANY OTHER CONCERNS. People present with illnesses and injuries in different ways, and it is always possible that we have missed something. You may always return for re-evaluation if symptoms worsen or if they are not improving or if you develop new/different symptoms. Again, thank you for choosing our emergency department. We hope that you feel better. Referrals: Zakiya Canales MD [Primary Care Provider] - 1-2 days without fail Prescriptions: Amoxicillin/Clavulanate Pot [Augmentin 875 mg tab] 875 mg PO BID #20 tab
[2018-12-14 09:27] LABS: PLATELET COUNT 299 10^3/uL (150-400)
[2018-12-14] MEDS ORDERED: AMOXICILLIN/CLAVULANATE POT 875/125 MG TAB PO ONE (10:10)
[2018-12-14] MEDS ORDERED: NS 1,000 ML IV ONE (10:13)
[2018-12-14 10:26] VITALS: BP 114/87
== END 2018-12-14 11:01 | disposition home or self-care (01) ==
DX: J20.9 Acute bronchitis, unspecified (principal); R04.2 Hemoptysis

== ENCOUNTER → 2018-12-17 | Outpatient (CLI) | payer OTHER | LOC: FIMAGING 11:58 | PROVIDERS: ATTEND Family Medicine | DX: R91.8 Other nonspecific abnormal finding of lung field (principal); R53.81 Other malaise; R53.83 Other fatigue; D18.00 Hemangioma unspecified site ==

== ENCOUNTER 2018-12-20 07:34 | Emergency (ER) | payer OTHER ==
--- NOTE | 2018-12-20 07:41 | EDPHY ---
H & P Stated Complaint: cough Time Seen by Provider: 12/20/18 07:40 - Personal History Current Tetanus/Diphtheria Vaccine: Yes Tetanus Vaccine Date: > 10 yeas - Medical/Surgical History Hx Asthma: Yes Hx Chronic Respiratory Disease: No Hx Diabetes: No Hx Cardiac Disease: Yes Hx Renal Disease: No Hx Cirrhosis: No Hx Alcoholism: No Hx HIV/AIDS: No Hx Splenectomy or Spleen Trauma: No Other PMH: MIGRAINES, MVP, HYSTERECTOMY, hypothyroid, TIA - Social History Smoking Status: Never smoked Constitutional: Initial Vital Signs Temperature (C) 37.5 C 12/20/18 07:37 Heart Rate 91 12/20/18 07:37 Respiratory Rate 16 12/20/18 07:37 Blood Pressure 111/79 12/20/18 07:37 O2 Sat (%) 94 12/20/18 07:37 O2 Delivery Mode Room Air Allergies/Adverse Reactions: iodine Allergy (Verified 12/20/18 07:37) Iodine and Iodide Containing Produc Allergy (Verified 12/20/18 07:37) Loss of consciousness EGGS Allergy (Uncoded 12/20/18 07:37) Home Medications: Medication Instructions Recorded Propranolol HCl 60 mg PO BID 09/30/14 Advair 100/50 (*) 12/14/18 Amoxicillin/Clavulanate Pot 875 mg PO BID #20 tab 12/14/18 [Augmentin 875 mg tab] Levothyroxine 12/14/18 Albuterol [Proventil Inhaler] 1 - 2 puffs IH Q4 #1 mdi 12/20/18 HYDROcodone/HOMATROPINE HYCODA 1 tsp PO Q4-6PRN PRN #120 ml 12/20/18 [Hycodan Syrup (RX)] methylPREDNISolone [Medrol Dose 1 each PO AD #1 ea 12/20/18 Benjy] Medical Decision Making - Diagnostics Imaging Results: Imaging Impressions Chest X-Ray 12/20/18 07:47 Impression: Persistent right middle lobe consolidation, which could be related to aspiration and/or pneumonia. Imaging: I viewed and interpreted images myself ED Course/Re-evaluation: CHIEF COMPLAINT: Cough HISTORY OF PRESENT ILLNESS: The patent is a 53 y/o female complaining of a worsening cough and shortness of breath. On Thursday, 6 days ago, "aspired vomit" and has been coughing since. Due to her symptoms she presented to the emergency department (12/14/18), had a chest x-ray and was diagnosed with aspiration pneumonia. She was prescribed Augmentin. She then followed up with her PCP and was given and IM dose of Rocephin. However, she continues to have her symptoms, which concerned her. No fever, headache, body aches, lightheadedness, chest pain, heart palpitations, shortness of breath, abdominal pain, urinary or bowel complaints, numbness, paresthesias. REVIEW OF SYSTEMS: A comprehensive 10 system review of systems is otherwise negative aside from elements mentioned in the history of present illness and medical decision making. PHYSICAL EXAM: HR, BP, O2 Sat, RR. Temp noted General Appearance: Alert, well hydrated, appropriate, and non-toxic appearing. Head: Atraumatic without scalp tenderness or obvious injury Eyes: Pupils equal, round, reactive to light and accommodation, EOMI, no trauma , no injection. Ears: Clear bilaterally, no perforation, normal landmarks Nose: Atraumatic, no rhinorrhea, clear. Throat: There is no erythema or exudates, no lesions, normal tonsils, mucus membranes moist. Neck: Supple, 2+ carotid upstroke, nontender, no lymphadenopathy. Respiratory: Persistent cough. No retractions, no distress, no wheezes, and no accessory muscle use. Lungs are clear to auscultation bilaterally. Cardiovascular: Regular rate and rhythm, no murmurs, rubs, or gallops. Bilateral carotid, radial, dorsalis pedis, and posterior tibial pulses intact. Good capillary refill all extremities. Gastrointestinal: Abdomen is soft, nontender, non-distended, no masses, no rebound, no guarding, no peritoneal signs. Musculoskeletal: Normal active ROM of all extremities, atraumatic. Neurological: Alert, appropriate, and interactive. The patient has normal DTRs and non-focal cranial nerves, motor, sensory, and cerebellar exam. Skin: No rashes, good turgor, no nodules on palpation. Past medical history: Migraines, hypothyroid, TIA Past surgical history: Hysterectomy Family history: Denies Social history: at bedside, lives in [place], employed DIAGNOSTICS/PROCEDURES/CRITICAL CARE TIME: Chest x-ray: No significantly different from chest x-ray on 12/14/18. Persistent right middle lobe consolidation, which could be related to aspiration and/or pneumonia. DIFFERENTIAL DIAGNOSIS: The differential diagnosis for the patient's shortness of breath and cough included but was not limited to pneumonia, myocardial infarction, acute mountain sickness, high altitude pulmonary edema, congestive heart failure, and pulmonary embolus. MEDICAL DECISION MAKING: The patent is a 53 y/o female with a history of aspiration pneumonia presenting with a worsening cough and shortness of breath. On Thursday, 6 days ago, " aspired vomit" and has been coughing since. Due to her symptoms she presented to the emergency department, had a chest x-ray, was diagnosed with aspiration pneumonia, and was prescribed Augmentin. She then saw her PCP and was given and IM dose of Rocephin. On exam she does not appear systemically ill, but does have a persistent cough. Chest x-ray ordered; 2 tab Percocet administered. 0803: I reviewed patient's chest x-ray, which does not appear that different from her prior chest x-ray. I believe this patient has a pneumonitis. I will page pulmonology to discuss this case. 0822: I consulted with Dr. Comer, paint mixer machine, regarding this patient. Patient will need to start a course of steroids for her pneumonitis and improving aspiration pneumonia. 0835: Reassessed patient and discussed imaging findings. 40mg PO prednisone and DuoNeb administered prior to discharge. I have advised her to take the Medrol Dosepak, Hycodan Elixir, and an Albuterol Inhaler as prescribed. She will need to follow up with a paint mixer machine. She does have an appointment with Dr. Hinds, paint mixer machine, on Thursday (2 days from now). Return precautions provided; patient is comfortable with this plan. - Data Points Medications Given: Discontinued Medications Oxycodone/Acetaminophen (Percocet 5/325) 2 tab PO EDNOW ONE Stop: 12/20/18 07:47 Last Admin: 12/20/18 07:55 Dose: 2 tab Departure - Departure Disposition: Home, Routine, Self-Care Clinical Impression: Pneumonitis Pneumonia Qualifiers: Pneumonia type: aspiration pneumonia Aspiration pneumonia type: due to vomit Laterality: unspecified laterality Lung location: unspecified part of lung Qualified Code(s): J69.0 - Pneumonitis due to inhalation of food and vomit Condition: Good Instructions: Pneumonitis (ED), Aspiration Pneumonia (DC), Pneumonia (ED) Additional Instructions: 1. Take the Medrol Dose Pack, Albuterol Inhaler, and Hycodan Elixir as prescribed. 2. Follow up with a paint mixer machine in the next week. Please call their office to schedule an appointment. 3. Return to the Emergency Department for high fever, difficulty swallowing, difficulty tolerating liquids, neck pain or stiffness, shortness of breath or other concerns. Referrals: Zakiya Canales MD [Primary Care Provider] - As per Instructions Sen Comer MD [Medical Doctor] - As per Instructions Kvng Hinds MD [Medical Doctor] - As per Instructions Prescriptions: Albuterol [Proventil Inhaler] 1 - 2 puffs IH Q4 #1 mdi HYDROcodone/HOMATROPINE HYCODA [Hycodan Syrup (RX)] 1 tsp PO Q4-6PRN PRN #120 ml PRN Reason: Cough, Moderate methylPREDNISolone [Medrol Dose Benjy] 1 each PO AD #1 ea Report Scribed for: Gavin Rosenbaum Report Scribed by: Elysia Sanchez Date of Report: 12/20/18 Time of Report: 07:50
[2018-12-20] MEDS ORDERED: OXYCODONE/APAP 5/325 TAB PO ONE (07:46)
[2018-12-20] MEDS ORDERED: predniSONE 20 MG TAB PO ONE (08:26)
[2018-12-20] MEDS ORDERED: IPRATROPIUM/ALBUTEROL 3 ML DEYVIAL IH ONE (08:37)
[2018-12-20 08:56] VITALS: BP 104/63
== END 2018-12-20 09:01 | disposition home or self-care (01) ==
DX: J69.0 Pneumonitis due to inhalation of food and vomit (principal)
CPT/HCPCS: J7512

== ENCOUNTER → 2018-12-26 | Outpatient (CLI) | payer OTHER | LOC: FIMAGING 09:21 | PROVIDERS: ATTEND Internal Medicine Pulmonary Disease | DX: J18.9 Pneumonia, unspecified organism (principal); I25.10 Atherosclerotic heart disease of native coronary artery without angina pectoris ==